=== PATIENT | male | born 1980 | race Caucasian/White ===

== ENCOUNTER 2022-10-21 09:32 | Outpatient (CLI) | payer OTHER | END 2022-10-21 09:37 | disposition home or self-care (01) | LOC: SONOGRAMA 09:32 | DX: N50.819 Testicular pain, unspecified (principal) ==

== ENCOUNTER 2022-11-18 10:49 | Outpatient (CLI) | payer OTHER | END 2022-11-18 10:54 | disposition home or self-care (01) | LOC: TOM 10:49 | DX: C62.90 Malignant neoplasm of unspecified testis, unspecified whether descended or undescended (principal) ==

== ENCOUNTER 2023-06-30 12:21 | Outpatient (CLI) | payer OTHER | END 2023-06-30 12:29 | disposition home or self-care (01) | LOC: SONOGRAMA 12:21 | DX: E04.1 Nontoxic single thyroid nodule (principal) ==